=== PATIENT | female | born 1940 | race Caucasian/White ===

== ENCOUNTER 2018-02-12 15:11 | Inpatient (IN) ==
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
[2018-02-12] MEDS ORDERED: Morphine Sulfate Inj 2 MG/ML Vial IV.PUSH ONE (15:52)
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
[2018-02-12 16:50] LABS: Baso # (Auto) 0.1 th/mm3 (0.0-0.2); Baso % (Auto) 0.6 % (0.0-2.0); Eos % (Auto) 0.4 % (0.0-4.0); Hematocrit 40.4 % (35.0-46.0); Hemoglobin 12.9 gm/dL (11.6-15.3); Lymph # (Auto) 0.7 th/mm3 (1.0-4.8); Lymph % (Auto) 6.5 % (9.0-44.0); Mean Corpuscular HGB Conc 31.9 % (32.0-36.0); Mean Corpuscular Hemoglobin 25.9 pg (27.0-34.0); Mean Corpuscular Volume 81.2 fL (80.0-100.0); Mono # (Auto) 0.8 th/mm3 (0.0-0.9); Neut # (Auto) 9.4 th/mm3 (1.8-7.7); Neut % (Auto) 85.5 % (16.0-70.0); Platelet Count 338 th/mm3 (150-450); Red Blood Count 4.97 mil/mm3 (4.00-5.30); Red Cell Distribution Width 13.5 % (11.6-17.2)
[2018-02-12 17:06] LABS: Prothrombin Time 9.7 sec (9.8-11.6)
[2018-02-12 17:07] LABS: Activated Partial Thrombo Time 19.8 sec (24.3-30.1)
[2018-02-12] MEDS ORDERED: Morphine Inj 4 MG/ML Vial IV.PUSH ONE (17:19)
[2018-02-12 18:21] LABS: Anion Gap 10 meq/L (5-15); Blood Urea Nitrogen 15 mg/dL (7-18); Calcium 8.9 mg/dL (8.5-10.1); Carbon Dioxide 25.1 meq/L (21.0-32.0); Chloride 106 meq/L (98-107); Glomerular Filtration Rate 68 mL/min (>89); Glucose,Random 169 mg/dL (74-106); Potassium 3.7 meq/L (3.5-5.1); Sodium 141 meq/L (136-145)
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
[2018-02-12] MEDS ORDERED: Morphine Inj 4 MG/ML Vial IV.PUSH PRN (20:07)
[2018-02-12] MEDS ORDERED: Metoprolol Tartrate 25 MG Tablet PO ONE (20:19)
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
[2018-02-12] MEDS ORDERED: Dextrose 50% in Water 50 ML Vial IV.PUSH PRN (22:31)
[2018-02-13] MEDS: Methocarbamol 500 MG Tablet PO SCH ×4 (01:25→21:23)
[2018-02-13] MEDS ORDERED: Chlorhexidine Gluconate 2% 1 Pack (2 Cloths) TOPICAL PRN (04:00)
[2018-02-13] MEDS ORDERED: Chlorhexidine Gluconate 2% 1 Pack (2 Cloths) TOPICAL SCH (04:00)
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
[2018-02-13 06:17] LABS: Baso % (Auto) 0.6 % (0.0-2.0); Eos % (Auto) 0.3 % (0.0-4.0); Hemoglobin 11.2 gm/dL (11.6-15.3); Lymph % (Auto) 16.1 % (9.0-44.0); Mean Corpuscular HGB Conc 32.9 % (32.0-36.0); Mean Corpuscular Hemoglobin 26.7 pg (27.0-34.0); Mean Corpuscular Volume 81.1 fL (80.0-100.0); Mean Platelet Volume 7.9 fL (7.0-11.0); Mono # (Auto) 0.6 th/mm3 (0.0-0.9); Mono % (Auto) 9.6 % (0.0-8.0); Neut # (Auto) 4.7 th/mm3 (1.8-7.7); Neut % (Auto) 73.4 % (16.0-70.0); Platelet Count 297 th/mm3 (150-450); Red Blood Count 4.19 mil/mm3 (4.00-5.30); Red Cell Distribution Width 13.4 % (11.6-17.2); White Blood Count 6.4 th/mm3 (4.0-11.0)
[2018-02-13 07:26] LABS: Alanine Aminotransferase 12 U/L (10-53); Albumin 2.7 g/dL (3.4-5.0); Anion Gap 11 meq/L (5-15); Aspartate Aminotransferase 13 U/L (15-37); Blood Urea Nitrogen 18 mg/dL (7-18); Calcium 8.7 mg/dL (8.5-10.1); Carbon Dioxide 24.8 meq/L (21.0-32.0); Chloride 104 meq/L (98-107); Glomerular Filtration Rate 67 mL/min (>89); Glucose,Random 134 mg/dL (74-106); Sodium 140 meq/L (136-145)
[2018-02-13 07:29] LABS: Alkaline Phosphatase 63 U/L (45-117); Total Protein 6.3 g/dL (6.4-8.2)
[2018-02-13] MEDS: Insulin NovoLOG Aspart Correctional Sugar Inj SQ SCH ×5 (08:00→21:28)
--- NOTE | 2018-02-13 08:20 | ECG ---
Date Performed: 02/12/2018 Time Performed: 19:38:51 PTAGE: 77 years EKG: Sinus rhythm NORMAL ECG NO PREVIOUS TRACING DOCTOR: Ethan Hernandez Interpretating Date/Time 02/13/2018 08:18:01
[2018-02-13] MEDS: amLODIPine 5 MG Tablet PO SCH (08:50)
[2018-02-13] MEDS: Senna/Docusate Sodium 8.6/50 MG Tablet PO SCH ×2 (08:50→21:22)
[2018-02-13] MEDS: Famotidine 20 MG Tablet PO SCH ×2 (08:50→21:22)
[2018-02-13] MEDS: Lidocaine 5% Patch T-DERMAL SCH (08:50)
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
[2018-02-13] MEDS: Metoprolol Tartrate 50 MG Tablet PO SCH (21:22)
[2018-02-14] MEDS: Methocarbamol 500 MG Tablet PO SCH ×3 (05:34→21:17)
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
--- NOTE | 2018-02-14 07:17 | P.DCO ---
- Physical Therapy Order: Evaluate and treat, Improve ambulation, Strength and gait training - Home Health Nursing Order: Medical education, Signs/symptoms of disease process, Diabetic education , Medication education-adverse effect, Nursing assessment with vital signs - Certification I have seen patient Zoë Mosley on 02/14/18. My clinical findings support the need for the requested home health care services because: Limited mobility due to disease progression, Patient has SOB, Deconditioned with increased weakness, Limited ability to care for self, High risk of falls I certify that my clinical findings support that this patient is homebound because: Post-op weakness, Impaired cognitive ability/safety, Unsteady gait/balance, Unsafe to leave home unassisted, Unable to use public transportation
[2018-02-14] MEDS: Lidocaine 5% Patch T-DERMAL SCH (08:30)
[2018-02-14] MEDS: Metoprolol Tartrate 50 MG Tablet PO SCH ×2 (08:31→21:17)
[2018-02-14] MEDS: Senna/Docusate Sodium 8.6/50 MG Tablet PO SCH ×2 (08:31→21:17)
[2018-02-14] MEDS: amLODIPine 5 MG Tablet PO SCH (08:31)
[2018-02-14] MEDS: Enoxaparin Inj 30 MG/0.3 ML Syringe SQ SCH ×2 (08:31→21:16)
[2018-02-14] MEDS: Famotidine 20 MG Tablet PO SCH ×2 (08:31→21:16)
[2018-02-14] MEDS: Insulin NovoLOG Aspart Correctional Sugar Inj SQ SCH ×4 (08:31→22:14)
[2018-02-14] MEDS: Lisinopril 20 MG Tablet PO SCH (08:35)
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
[2018-02-15] MEDS: Methocarbamol 500 MG Tablet PO SCH ×2 (05:59→16:27)
[2018-02-15] MEDS: Insulin NovoLOG Aspart Correctional Sugar Inj SQ SCH ×2 (08:16→12:55)
[2018-02-15] MEDS: Lisinopril 20 MG Tablet PO SCH (08:54)
[2018-02-15] MEDS: amLODIPine 5 MG Tablet PO SCH (08:55)
[2018-02-15] MEDS: Enoxaparin Inj 30 MG/0.3 ML Syringe SQ SCH (08:55)
[2018-02-15] MEDS: Famotidine 20 MG Tablet PO SCH (08:55)
[2018-02-15] MEDS: Senna/Docusate Sodium 8.6/50 MG Tablet PO SCH (08:55)
[2018-02-15] MEDS: Metoprolol Tartrate 50 MG Tablet PO SCH (08:55)
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
[2018-02-15] MEDS: Lidocaine 5% Patch T-DERMAL SCH (10:00)
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
== END 2018-02-15 16:37 | disposition home health service (06) ==
LOC: NEPD 15:11 → NEDH 19:35 → N06 19:45
PROVIDERS: ADMIT Surgery Trauma Surgery; ATTEND Surgery Trauma Surgery